=== PATIENT | female | born 1980 | race Caucasian/White ===

== ENCOUNTER 2020-01-25 16:38 | Emergency (ER) | payer MEDICAID ==
[~2020-01-25] VITALS: Ht 167.6 cm; Wt 61.4 kg
[2020-01-25] MEDS ORDERED: IV NORMAL SALINE 1,000ML 1,000 ML IV ONE (17:00)
[2020-01-25] MEDS ORDERED: ONDANSETRON PF 4 MG/2 ML VIAL. IVP ONE ×2 (17:15→20:30)
[2020-01-25 17:41] LABS: BASO % 1 % (0-3); EOS % 1 % (0-3); HEMATOCRIT 36.9 % (36.0-47.0); HEMOGLOBIN 12.6 g/dL (12.0-15.5); LYMPH # 1.4 x10^3/uL (1.0-4.8); LYMPH % 24 % (24-48); MEAN CORPUSCULAR HEMOGLOBIN 33 pg (25-35); MEAN CORPUSCULAR HGB CONC 34 g/dL (31-37); MEAN CORPUSCULAR VOLUME 96 fL (79-100); MONO # 0.4 x10^3/uL (0.0-1.1); MONO % 6 % (0-9); NEUT % 68 % (31-73); PLATELET COUNT 219 x10^3/uL (140-400); RED BLOOD COUNT 3.84 x10^6/uL (3.50-5.40); RED CELL DISTRIBUTION WIDTH 13.2 % (11.5-14.5); WHITE BLOOD COUNT 5.9 x10^3/uL (4.0-11.0)
--- NOTE | 2020-01-25 17:47 | PHYS DOC ---
Past History Past Medical History: No Pertinent History (BERNIE CLAUDIO DO) Past Medical History: Other Past Medical History D & C, January 19, products of conception gravid 8 term 3 (STALIN PURVIS MD) Past Surgical History: Cholecystectomy Past Surgical History D&C (BERNIE CLAUDIO DO) Past Surgical History D and C [facility] 629 products of conception (STALIN PURVIS MD) Smoking: Non-smoker Alcohol Use: None (BERNIE CLAUDIO DO) Smoking: Cigarettes Alcohol Use: Occasionally (STALIN PURVIS MD) General Adult EDM: Chief Complaint: ABDOMINAL PAIN HPI: HPI: Patient is a 39 year old female who presents for evaluation of moderate to severe mid and lower abdominal discomfort. Patient is status post D&C that was done approximately 6 days ago in [place]. She has had return of vaginal bleeding over the past 24 hours. Furthermore she is having difficulty urinating. Patient had 2- COVID swabs prior to and after her surgery. She has no known COVID exposure. Patient is a 8 para 3. Patient denies any fevers and chills. (BERNIE CLAUDIO DO) HPI: I had a D and C at [facility] in [facility] ..6 days ago for miscarry.. and bleeding.. Now I ve got more pain... and bleeding... " P.t 39 female with above hx and complaints of bleeding and increased abdomen pain after D and C in [facility]. Patient is 8 term 3. Did have a D&C approximately 6 days ago. Patient continued to bleed and now increased pain. Bleeding is consistent with amount of a normal period. Patient has no history of coagulopathy. With her or family members. Has had a previous history of chlamydia which was treated. Lifetime sex partners is 6. No history of trauma other than the D&C. Recent travel from [facility] to [facility] to stay with her mom. Her pain is rated 8-10 lower pelvic area. Movement exacerbates it. Bilateral psoas sign. Rebound to lower pelvic area. (STALIN PURVIS MD) Review of Systems: Review of Systems: Constitutional: Denies fever or chills Eyes: Denies change in visual acuity HENT: Denies nasal congestion or sore throat Respiratory: Denies cough or shortness of breath Cardiovascular: Denies chest pain or edema GI: Denies abdominal pain, nausea, vomiting, bloody stools or diarrhea : Denies dysuria Musculoskeletal: Denies back pain or joint pain Integument: Denies rash Neurologic: Denies headache, focal weakness or sensory changes Endocrine: Denies polyuria or polydipsia Lymphatic: Denies swollen glands Psychiatric: Denies depression or anxiety (BERNIE CLAUDIO DO) Review of Systems: Review of systems- negative except for complaints of vaginal bleeding and lower pelvic pain (STALIN PURVIS MD) Heart Score: Risk Factors: Risk Factors: DM, Current or recent (<one month) smoker, HTN, HLP, family history of CAD, obesity. Risk Scores: Score 0 - 3: 2.5% MACE over next 6 weeks - Discharge Home Score 4 - 6: 20.3% MACE over next 6 weeks - Admit for Clinical Observation Score 7 - 10: 72.7% MACE over next 6 weeks - Early Invasive Strategies (BERNIE CLAUDIO DO) Family History: Family History: Noncontributory (STALIN PURVIS MD) Current Medications: Current Meds: Current Medications Medications (Trade) Dose Ordered Sig/Brittany Start Time Stop Time Status Last Admin Dose Admin Fentanyl Citrate (Fentanyl 2ml Vial) 50 mcg 1X ONCE 01/25/20 17:00 01/25/20 17:06 DC 01/25/20 17:26 50 MCG Ondansetron HCl (Zofran) 4 mg 1X ONCE 01/25/20 17:15 01/25/20 17:16 DC 01/25/20 17:26 4 MG Sodium Chloride 1,000 ml @ 1,000 mls/hr 1X ONCE 01/25/20 17:00 01/25/20 17:59 01/25/20 17:26 1,000 MLS/HR (BERNIE CLAUDIO DO) Current Meds: See nursing for home meds (STALIN PURVIS MD) Allergies: Allergies: Allergies Coded Allergies Type Severity Reaction Last Updated Verified Penicillins Allergy Unknown 01/25/20 Yes ketorolac Allergy Unknown 01/25/20 Yes metoclopramide Allergy Unknown 01/25/20 Yes morphine Allergy Unknown 01/25/20 Yes tramadol Allergy Unknown 01/25/20 Yes (BERNIE CLAUDIO DO) Allergies: Allergic to penicillin, Elan Ketalar rack, Reglan, morphine and tramadol (STALIN PURVIS MD) Physical Exam: PE: Constitutional: Well developed, well nourished, no acute distress, non-toxic appearance. [] HENT: Normocephalic, atraumatic, bilateral external ears normal, oropharynx moist, no oral exudates, nose normal. [] Eyes: PERRLA, EOMI, conjunctiva normal, no discharge. [] Neck: Normal range of motion, no tenderness, supple, no stridor. [] Cardiovascular:Heart rate regular rhythm, no murmur [] Lungs & Thorax: Bilateral breath sounds clear to auscultation [] Abdomen: Bowel sounds normal, soft, no tenderness, no masses, no pulsatile masses. [] Skin: Warm, dry, no erythema, no rash. [] Back: No tenderness, no CVA tenderness. [] Extremities: No tenderness, no cyanosis, no clubbing, ROM intact, no edema. [] Neurologic: Alert and oriented X 3, normal motor function, normal sensory function, no focal deficits noted. [] Psychologic: Affect normal, judgement normal, mood normal. [] (BERNIE CLAUDIO DO) PE: General-generalized discomfort HEENT pupils equal reactive light. Conjunctiva normal. Neck supple. Chest-breath sounds equal apex with few scattered wheezes. Cardiovascular:regular rate and rhythm, no murmur Abdomen: Bowel sounds decreased, rebound to the lower pelvic area-pelvic exam minimal bleeding from os. Mild generalized cervical tenderness. No localization in the adnexa. Rectal nontender. Old surgery scars. Extremities-moves extremities on request. Distal neurovascular intact. Patient is ambulatory without problem. (STALIN PURVIS MD) Current Patient Data: Labs: Laboratory Tests Test 01/25/20 17:28 White Blood Count 5.9 x10^3/uL Red Blood Count 3.84 x10^6/uL Hemoglobin 12.6 g/dL Hematocrit 36.9 % Mean Corpuscular Volume 96 fL Mean Corpuscular Hemoglobin 33 pg Mean Corpuscular Hemoglobin Concent 34 g/dL Red Cell Distribution Width 13.2 % Platelet Count 219 x10^3/uL Neutrophils (%) (Auto) 68 % Lymphocytes (%) (Auto) 24 % Monocytes (%) (Auto) 6 % Eosinophils (%) (Auto) 1 % Basophils (%) (Auto) 1 % Neutrophils # (Auto) 4.0 x10^3uL Lymphocytes # (Auto) 1.4 x10^3/uL Monocytes # (Auto) 0.4 x10^3/uL Eosinophils # (Auto) 0.0 x10^3/uL Basophils # (Auto) 0.0 x10^3/uL Maternal Serum HCG Beta Subunit 125 mIU/mL Sodium Level 136 mmol/L Potassium Level 3.7 mmol/L Chloride Level 101 mmol/L Carbon Dioxide Level 27 mmol/L Anion Gap 8 Blood Urea Nitrogen 15 mg/dL Creatinine 0.9 mg/dL Estimated GFR (Cockcroft-Gault) 70.5 BUN/Creatinine Ratio 17 Glucose Level 99 mg/dL Calcium Level 8.8 mg/dL Total Bilirubin 0.5 mg/dL Aspartate Amino Transf (AST/SGOT) 18 U/L Alanine Aminotransferase (ALT/SGPT) 50 U/L Alkaline Phosphatase 60 U/L Total Protein 7.2 g/dL Albumin 3.6 g/dL Albumin/Globulin Ratio 1.0 Current Medications Medications (Trade) Dose Ordered Sig/Brittany Route PRN Reason Start Time Stop Time Status Last Admin Dose Admin Sodium Chloride 1,000 ml @ 1,000 mls/hr 1X ONCE IV 01/25/20 17:00 01/25/20 17:59 DC 01/25/20 17:26 Fentanyl Citrate (Fentanyl 2ml Vial) 50 mcg 1X ONCE IVP 01/25/20 17:00 01/25/20 17:06 DC 01/25/20 17:26 Ondansetron HCl (Zofran) 4 mg 1X ONCE IVP 01/25/20 17:15 01/25/20 17:16 DC 01/25/20 17:26 Fentanyl Citrate (Fentanyl 2ml Vial) 50 mcg 1X ONCE IVP 01/25/20 18:15 01/25/20 18:16 DC Iohexol (Omnipaque 240 Mg/ml) 30 ml 1X ONCE PO 01/25/20 18:30 01/25/20 18:31 DC Info (Do NOT chart on this entry -- for MONITORING) 1 each PRN DAILY PRN MC SEE COMMENTS 01/25/20 18:30 01/27/20 18:29 Vital Signs: Vital Signs Date Time Temp Pulse Resp B/P (MAP) Pulse Ox O2 Delivery O2 Flow Rate FiO2 01/25/20 17:01 98.2 97 18 102/73 (83) 97 (BERNIE CLAUDIO DO) EKG: EKG: [] (BERNIE CLAUDIO DO) Radiology/Procedures: Radiology/Procedures: [] (BERNIE CLAUDIO DO) Radiology/Procedures: [address] [id number] IMAGING REPORT Signed PATIENT: ANNA REYNA ACCOUNT: [id number] : 1980 LOCATION: ER AGE: 39 SEX: F EXAM STATUS: REG ER ORD. PHYSICIAN: STALIN PURVIS MD REASON: Bleeding , pain post D & C 6 days PROCEDURE: US PELVIS Examination: US PELVIS History: Reason: Bleeding , pain post D C 6 days / Spl. Instructions: / History: Comparison/Correlation: None Findings: Transabdominal pelvic ultrasound was performed. Uterus measures 9.9 cm x 6.9 cm x 5.3 cm. Within the left myometrium, there is a 1 cm diameter fairly hypoechoic hypoechoic structure with no associated flow. Endometrial thickness of 2.4 cm noted. No abnormal flow identified to suggest retained products of conception. Right adnexa measures 2.1 x 2.3 cm x 2.27. Left adnexa measures 2.1 x 1.5 cerebral 0.3 cm. No adnexal masses or pelvic free fluid. Normal flow involving ovaries is identified. Impression: Thickened endometrium. No flow identified to suggest retained products of conception. Fairly hypoechoic structure involving the myometrium which may represent a degenerating fibroid. Alternatively, cystic structure related to adenomyosis may account for this finding. No suspicious adnexal mass. Electronically signed by: Douglas German MD (01/25/2020 7:53 PM) [facility] DICTATED AND SIGNED BY: DOUGLAS GERMAN MD DATE: 01/25/201952 CC: STALIN PURVIS MD; PCP,NO ~ [address] [place] [id number] IMAGING REPORT Signed PATIENT: TERRY REYNAIsela Martin ACCOUNT: [id number] : 1980 LOCATION: ER AGE: 39 SEX: F EXAM STATUS: REG ER ORD. PHYSICIAN: STALIN PURVIS MD REASON: increase pain after surg. D and C 6 day.s PROCEDURE: CT ABD PEL W/ORAL CONTRST ONLY Exam: CT of abdomen and pelvis without contrast INDICATION: Increased pain after surgery TECHNIQUE: Sequential axial images through the abdomen and pelvis obtained without IV contrast. Sagittal and coronal reformatted images were reconstructed from the axial data and reviewed. Comparisons: None FINDINGS: Heart size is normal. No pericardial effusion. Visualized lung bases are clear. No pleural effusion. Evaluation of solid organs is limited secondary to noncontrast technique. Liver, spleen, pancreas and adrenals are unremarkable. Gallbladder is surgically absent. No perinephric inflammation or hydronephrosis. No renal or ureteral calculi are identified. Bladder is distended and appears thin-walled. Uterus is not enlarged. No abnormal adnexal mass. Few scattered diverticula noted in the descending and sigmoid colon without evidence of acute colitis. Mild wall thickening is noted at the transverse colon. Appendix is normal. No free intra-abdominal air or fluid. No obstruction. Abdominal aorta has a normal course and caliber. No enlarged abdominal lymph nodes are identified. No suspicious osseous lesions or acute fractures. IMPRESSION: 1. Mild wall thickening involving the transverse colon, may relate to focal colitis. 2. Otherwise, no acute process identified within the abdomen or pelvis. Exposure: One or more of the following in the visualized dose reduction techniques were utilized for this examination: 1. Automated exposure control 2. Adjustment of the MA and/or KV according to patient size 3. Use of iterative of reconstructive technique Electronically signed by: Cesario Ceja MD (01/25/2020 7:47 PM) [id number] DICTATED AND SIGNED BY: CESARIO CEJA MD DATE: 01/25/201946 CC: STALIN PURVIS MD; PCP,NO ~ (STALIN PURVIS MD) Course & Med Decision Making: Course & Med Decision Making Pertinent Labs and Imaging studies reviewed. (See chart for details) [] (BERNIE CLAUDIO DO) Course & Med Decision Making Patient stay on clear fluids only. X48 hours. No solids. No milk products. Push clear fluids such as Jell-O Gatorade clear broth. Continue pad counts. Patient follow-up pending cultures. If continued problems will need to present to a hospital that has [facility] services for admission. Take Tylenol and ibuprofen for pain. For marked pain may take Percocet up to 4 times a day.. Must have reexam if no improvement. Impression: 1. Abdomen Pain- Post D and C , [facility] [place] in [place] 01/19 2. History gravid 8 term 3, 5 miscarriages 3. Beta-hCG 125 4. Hemoglobin 12.6 (STALIN PURVIS MD) Dragon Disclaimer: Dragon Disclaimer: This electronic medical record was generated, in whole or in part, using a voice recognition dictation system. 1800 Stable, care of patient assumed by Dr. Rivera at shift change. Pt will need CT abd/pelvis scan for further evaluation. Labwork thus far unremarkable. (BERNIE CLAUDIO DO) Departure Departure: Impression: Primary Impression: Lower abdominal pain Additional Impression: History of D&C Disposition: 01 HOME/RESIDENCE PRIOR TO ADM Condition: STABLE Referrals: PCP,NO (PCP) Scripts Famotidine (PEPCID) 20 Mg Tablet 1 TAB PO BID for gerd, #60 TAB 3 Refills Prov: STALIN PURVIS MD 01/25/20 Oxycodone Hcl/Acetaminophen (PERCOCET 5-325 MG TABLET ) 1 Each Tablet 1 TAB PO PRN Q6HRS PRN for PAIN, #30 TAB Prov: STALIN PURVIS MD 01/25/20 Justification of Admission: Justification of Admission: Justification of Admission Dx: N/A (STALIN PURVIS MD) Dragon Disclaimer This chart was dictated in whole or in part using Voice Recognition software in a busy, high-work load, and often noisy Emergency Department environment. It may contain unintended and wholly unrecognized errors or omissions. (STALIN PURVIS MD) Dragon Disclaimer This chart was dictated in whole or in part using Voice Recognition software in a busy, high-work load, and often noisy Emergency Department environment. It may contain unintended and wholly unrecognized errors or omissions. (BERNIE CLAUDIO DO) BERNIE CLAUDIO DO Jan 25, 2020 17:47 STALIN PURVIS MD Jan 25, 2020 19:18
[2020-01-25 17:50] LABS: CALCIUM 8.8 mg/dL (8.5-10.1); CREATININE 0.9 mg/dL (0.6-1.0); GFR 70.5; POTASSIUM 3.7 mmol/L (3.5-5.1)
[2020-01-25 17:56] LABS: ALBUMIN 3.6 g/dL (3.4-5.0); TOTAL BILIRUBIN 0.5 mg/dL (0.2-1.0); TOTAL PROTEIN 7.2 g/dL (6.4-8.2)
[2020-01-25] MEDS ORDERED: IOHEXOL 240 MG/ML 50ML VIAL. PO ONE (18:30)
[2020-01-25] MEDS ORDERED: CONTRAST GIVEN MC PRN (18:30)
--- NOTE | 2020-01-25 19:50 | RAD ---
Exam: CT of abdomen and pelvis without contrast INDICATION: Increased pain after surgery TECHNIQUE: Sequential axial images through the abdomen and pelvis obtained without IV contrast. Sagittal and coronal reformatted images were reconstructed from the axial data and reviewed. Comparisons: None FINDINGS: Heart size is normal. No pericardial effusion. Visualized lung bases are clear. No pleural effusion. Evaluation of solid organs is limited secondary to noncontrast technique. Liver, spleen, pancreas and adrenals are unremarkable. Gallbladder is surgically absent. No perinephric inflammation or hydronephrosis. No renal or ureteral calculi are identified. Bladder is distended and appears thin-walled. Uterus is not enlarged. No abnormal adnexal mass. Few scattered diverticula noted in the descending and sigmoid colon without evidence of acute colitis. Mild wall thickening is noted at the transverse colon. Appendix is normal. No free intra-abdominal air or fluid. No obstruction. Abdominal aorta has a normal course and caliber. No enlarged abdominal lymph nodes are identified. No suspicious osseous lesions or acute fractures. IMPRESSION: 1. Mild wall thickening involving the transverse colon, may relate to focal colitis. 2. Otherwise, no acute process identified within the abdomen or pelvis. Exposure: One or more of the following in the visualized dose reduction techniques were utilized for this examination: 1. Automated exposure control 2. Adjustment of the MA and/or KV according to patient size 3. Use of iterative of reconstructive technique Electronically signed by: Cesario Sierra MD (01/25/2020 7:47 PM) [id number]
--- NOTE | 2020-01-25 19:56 | RAD ---
Examination: US PELVIS History: Reason: Bleeding , pain post D C 6 days / Spl. Instructions: / History: Comparison/Correlation: None Findings: Transabdominal pelvic ultrasound was performed. Uterus measures 9.9 cm x 6.9 cm x 5.3 cm. Within the left myometrium, there is a 1 cm diameter fairly hypoechoic hypoechoic structure with no associated flow. Endometrial thickness of 2.4 cm noted. No abnormal flow identified to suggest retained products of conception. Right adnexa measures 2.1 x 2.3 cm x 2.27. Left adnexa measures 2.1 x 1.5 cerebral 0.3 cm. No adnexal masses or pelvic free fluid. Normal flow involving ovaries is identified. Impression: Thickened endometrium. No flow identified to suggest retained products of conception. Fairly hypoechoic structure involving the myometrium which may represent a degenerating fibroid. Alternatively, cystic structure related to adenomyosis may account for this finding. No suspicious adnexal mass. Electronically signed by: Douglas Patino MD (01/25/2020 7:53 PM) [facility]
[2020-01-25] MEDS ORDERED: IV RINGERS SOLUTION,LACTATED 1,000 ML IV ONE (20:30)
[2020-01-25] MEDS ORDERED: FAMO-63 PO (21:15)
[2020-01-25] MEDS ORDERED: OXYC1TAB15 PO (21:15)
[2020-01-25] MEDS ORDERED: LIDO:MAALOX 1:1 20 ML SINGLE DOSE. PO ONE (21:30)
[2020-01-25] MEDS ORDERED: HYDROmorphone PF 2 MG/ML VIAL IM ONE (21:30)
[2020-01-25] MEDS ORDERED: FAMOTIDINE 20 MG/2 ML VIAL IVP ONE (21:30)
[2020-01-25] MEDS ORDERED: diphenhydrAMINE 50 MG/ML VIAL ONE (21:46)
[2020-01-25 22:15] VITALS: BP 104/72
[2020-01-25 22:25] LABS: BARBITURATES NEG (NEG); BENZODIAZEPINES NEG (NEG); CANNABINOIDS POS (NEG); COCAINE NEG (NEG); METHADONE NEG (NEG); OPIATES POS (NEG); PHENCYCLIDINE NEG (NEG)
[2020-01-25 22:26] LABS: BACTERIA,URINE FEW /HPF (0-FEW); BILIRUBIN,URINE NEG (NEG); CLARITY,URINE HAZY; COLOR,URINE STRAW; GLUCOSE,URINE NEG (NEG); NITRITE,URINE NEG (NEG); RBC,URINE >40 /HPF (0-2); SQUAMOUS EPITHELIAL CELL,UR FEW /LPF; UROBILINOGEN,URINE 0.2 mg/dL (0.2 mg/dL)
[2020-01-25 22:28] LABS: AMPHETAMINE/METHAMPHETAMINE NEG (NEG)
[2020-01-25] MEDS ORDERED: diphenhydrAMINE 50 MG/ML VIAL IVP ONE (22:30)
[2020-01-28 19:07] LABS: CHLAMYDIA PROBE Negative (Negative)
== END 2020-01-25 22:24 | disposition home or self-care (01) ==
LOC: ER 16:38
DX: G89.18 Other acute postprocedural pain (principal); R10.9 Unspecified abdominal pain; N93.9 Abnormal uterine and vaginal bleeding, unspecified; F17.210 Nicotine dependence, cigarettes, uncomplicated; Z90.49 Acquired absence of other specified parts of digestive tract; Z98.890 Other specified postprocedural states; Z88.0 Allergy status to penicillin; Z88.5 Allergy status to narcotic agent; Z88.6 Allergy status to analgesic agent; Z88.8 Allergy status to other drugs, medicaments and biological substances
CPT/HCPCS: 36415; 74176; 76856; 80053; 80307; 81001; 84702; 85025; 87491; 87591; 96372; 96374; 96375; 96376; 99285; J1170; J1200; J2405; J3010; J3490; J7030; J7120; Q0111; Q9966